=== PATIENT | female | born 1985 | race African-American/Black ===

== ENCOUNTER 2018-06-28 16:02 | Emergency (ER) | payer OTHER ==
[~2018-06-28] VITALS: Ht 167.6 cm; Wt 68.0 kg
[2018-06-28 16:02] VITALS: BP 143/91
--- NOTE | 2018-06-28 16:02 | NUR ---
PT BIB AMBULATE BLS TO BED 5
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
[2018-06-28 16:43] LABS: BASOPHILS % (AUTO) 0.6 % (0.0-2.0); EOSINOPHILS # (AUTO) 0.2 K/uL (0-0.4); EOSINOPHILS % (AUTO) 4.9 % (0.0-4.0); HEMATOCRIT 33.6 % (36-48); HEMOGLOBIN 10.7 g/dL (12.0-16.0); LYMPHOCYTES # (AUTO) 1.6 K/uL (2.5-16.5); LYMPHOCYTES % (AUTO) 32.7 % (20.5-51.1); MEAN CORPUSCULAR HEMOGLOBIN 25 pg (27-31); MEAN CORPUSCULAR HGB CONC 32 g/dL (33-37); MEAN CORPUSCULAR VOLUME 79.2 fL (80-94); MONOCYTES # (AUTO) 0.5 K/uL (0.8-1.0); MONOCYTES % (AUTO) 10.2 % (1.7-9.3); NEUTROPHILS # (AUTO) 2.5 K/uL (1.8-7.7); NEUTROPHILS % (AUTO) 51.6 % (42.2-75.2); PLATELET COUNT (AUTO) 270 K/uL (140-450); RED BLOOD CELL COUNT(AUTO) 4.24 MIL/uL (4.20-5.40); RED CELL DISTRIBUTION WIDTH 15.7 % (11.6-13.7); WHITE BLOOD COUNT (AUTO) 4.9 K/uL (4.8-10.8)
[2018-06-28 16:46] LABS: BILIRUBIN,URINE NEGATIVE (NEGATIVE); BLOOD, URINE NEGATIVE (NEGATIVE); COLOR,URINE YELLOW (YELLOW); LEUKOCYTE ESTERASE ,URINE NEGATIVE (NEGATIVE); NITRITE, URINE NEGATIVE (NEGATIVE); UGLUCOSE NEGATIVE (NEGATIVE)
[2018-06-28 16:49] LABS: APPEARANCE,URINE CLEAR (CLEAR)
[2018-06-28 16:52] LABS: ANION GAP 11.1 (8-16); CHLORIDE 102 mmol/L (98-107); CREATININE 0.8 mg/dL (0.6-1.3); GFR ARICAN-AMERICAN 106 mL/min (>90); GLUCOSE 98 mg/dL (74-106); POTASSIUM 4.1 mmol/L (3.5-5.1); SODIUM SERUM 138 mmol/L (136-145); UREA NITROGEN, BLOOD 14 mg/dL (7-18)
[2018-06-28 16:54] LABS: BARBITURATE, URINE NEG. ng/ml (NEG <=200); BENZODIAZEPINE, URINE NEG. ng/mL (NEG <=200); CANNABINOID, URINE POS. ng/mL (NEG <=50); COCAINE, URINE NEG. ng/mL (NEG <=300); OPIATE, URINE NEG. ng/mL (NEG <=2000); PHENCYCLIDINE SCREEN,URINE NEG. ng/mL (NEG <=25)
[2018-06-28 16:59] LABS: ALBUMIN 3.7 g/dL (3.4-5.0); ASPARTATE AMINOTRANSFERASE 23 U/L (15-37); TOTAL BILIRUBIN 0.4 mg/dL (0.0-1.0)
[2018-06-28 17:01] LABS: SALICYLATE < 2.8 mg/dL (2.8-20.0)
[2018-06-28 17:02] LABS: ACETAMINOPHEN < 0.5 ug/ml (10-30)
--- NOTE | 2018-06-28 18:00 | NUR ---
SPOKE TELEPSYCH PSYCHIATRIST AT THIS TIME WHO IS REVIEWING PT CASE.
--- NOTE | 2018-06-28 18:18 | NUR ---
pt talking to telepsych at this time
--- NOTE | 2018-06-28 18:20 | NUR ---
Cooperative pt in video conference with Dr Kaye.
--- NOTE | 2018-06-28 18:20 | NUR ---
all harmful items moved from pt room, and pt belonging sent with security
--- NOTE | 2018-06-28 18:34 | NUR ---
pt up in bed eating crackers and juice at this time, food ordered for pt
[2018-06-28] MEDS ORDERED: LORazepam 2 MG/ML VIAL IM ONE (18:45)
--- NOTE | 2018-06-28 19:25 | NUR ---
REPORT GIVEN TO CLEMENTE CASTELLANOS
--- NOTE | 2018-06-28 19:26 | NUR ---
Packet has been recieved and will begin looking for bed placement at contracted facilities.
--- NOTE | 2018-06-28 19:30 | NUR ---
Dr. Martinez evaluating patient at bedside.
--- NOTE | 2018-06-28 19:53 | NUR ---
Possible bed @ [facility]. Packet and [id number] has been faxed. Baltazar with intake will call me or [facility] if they can accommodate patient.
--- NOTE | 2018-06-28 20:36 | NUR ---
REPORT GIVEN TO AAKASH AT [facility] FOR PLACEMENT.
--- NOTE | 2018-06-28 21:30 | NUR ---
[facility] at bedside for transport to [facility].
--- NOTE | 2018-06-28 21:30 | NUR ---
Michael rodriguez in ED - 06/28/18 at 2205 by [facility] at bedside for return transport.
[2018-06-28 21:35] VITALS: BP 115/51
== END 2018-06-28 21:30 ==
LOC: MED 16:02
DX: R45.851 Suicidal ideations (principal)
CPT/HCPCS: 36415; 80053; 80305; 81003; 85025; 96372; 99285; G0480; G0482; J2060

== ENCOUNTER 2019-04-08 08:31 | Emergency (ER) | payer OTHER ==
[~2019-04-08] VITALS: Ht 152.4 cm; Wt 61.2 kg
--- NOTE | 2019-04-08 08:31 | NUR ---
Patient BIBA BLS accompanied by [place] PD, transferred to bed 6. RN evaluating patient at bedside.
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
[2019-04-08 08:38] VITALS: BP 136/72
--- NOTE | 2019-04-08 09:06 | NUR ---
Patient being evaluated by DR STEELE at bedside.
--- NOTE | 2019-04-08 09:16 | NUR ---
Dr. Coates placed patient up for discharge. Dr. Coates ordered for patient to eat before discharge. [facility] requested to be called once patient is discharged.
--- NOTE | 2019-04-08 09:17 | NUR ---
Food tray provided. Pt eating at this time.
--- NOTE | 2019-04-08 09:20 | NUR ---
FOOD TRAY PROVIDED PATIENT WITH STEROFORM AT THIS TIME. Addendum: 04/08/19 at 0933 by [email or web address] ATE 80% OF FOOD. NO N/V AT THIS TIME.
--- NOTE | 2019-04-08 09:31 | NUR ---
Called [place] [employer] dispatch and advised them patient is being discharged and ready to be picked. Officer will be en route.
[2019-04-08 09:50] VITALS: BP 136/72
--- NOTE | 2019-04-08 09:50 | NUR ---
Note genevieveone in EDM - 04/08/19 at 0955 by [facility] Patient discharged with v/s stable. Written and verbal after care instructions given and explained. Patient alert, oriented and verbalized understanding of instructions. Police with steady gait. All questions addressed prior to discharge. ID band removed. Patient advised to follow up with PMD. Rx of ZYPREXA given. Patient educated on indication of medication including possible reaction and side effects. Opportunity to ask questions provided and answered.
--- NOTE | 2019-04-08 09:50 | NUR ---
Patient discharged with v/s stable. Written and verbal after care instructions given and explained. All questions addressed prior to discharge. Patient advised to follow up with PMD. Rx of ZYPREXA given. Patient educated on indication of medication including possible reaction and side effects. Opportunity to ask questions provided and answered.
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
--- NOTE | 2019-04-08 10:06 | NUR ---
Prebook form provided to officer. Discharge instructions and prescription were given to officer.
== END 2019-04-08 10:06 ==
LOC: MED 08:31
DX: F31.9 Bipolar disorder, unspecified (principal); F19.10 Other psychoactive substance abuse, uncomplicated; F20.9 Schizophrenia, unspecified; F15.90 Other stimulant use, unspecified, uncomplicated
CPT/HCPCS: 99283